=== PATIENT | male | born 1975 | race Hispanic/Latino ===

== ENCOUNTER 2021-03-14 22:14 | Observation (INO) | payer SELFPAY ==
[2021-03-14 22:56] LABS: #Lymphocytes 1.1 thou/uL (1.20-3.40); #Monocytes 0.3 thou/uL (0.11-0.59); #Neutrophils 6.9 thou/uL (1.40-6.50); %Basophils 0.2 % (0.0-1.0); %Eosinophils 0.1 % (0.0-10.0); %Lymphocytes 12.5 % (21.0-51.0); %Monocytes 4.1 % (0.0-10.0); %Neutrophils 83.1 % (42.0-75.0); Hemoglobin 16.6 g/dL (14.0-18.0); Mean Corpuscular HGB CONC 33.9 g/dL (32.0-36.0); Mean Corpuscular Hemoglobin 31.7 pg (27.0-31.0); Mean Corpuscular Volume 93.7 fL (78.0-98.0); Mean Platelet Volume 10.4 fL (7.4-10.4); Platelet Count 120 thou/uL (130-400); RBC Distribution Width 12.3 % (11.5-14.5); Red Blood Cell (RBC) Count 5.22 mill/uL (4.70-6.10); White Blood Cell (WBC) Count 8.4 thou/uL (4.8-10.8)
[2021-03-14 23:14] LABS: ALT (SGPT) 213 U/L (8-55); AST (SGOT) 261 U/L (5-34); Albumin 3.9 g/dL (3.5-5.0); Alkaline Phosphatase 102 U/L (40-110); Anion Gap 13 mmol/L (10-20); BUN (Urea Nitrogen) 11 mg/dL (8.9-20.6); Bilirubin, Total 0.5 mg/dL (0.2-1.2); Calc. Creatinine Clearance 0 mL/min (70-130); Calcium 8.8 mg/dL (7.8-10.44); Carbon Dioxide 24 mmol/L (22-29); Chloride 99 mmol/L (98-107); Globulin 2.7 g/dL (2.4-3.5); Glucose 112 mg/dL (70-105); Potassium 4.1 mmol/L (3.5-5.1); Protein, Total 6.6 g/dL (6.0-8.3); Sodium 132 mmol/L (136-145)
[2021-03-14] MEDS ORDERED: Acetaminophen 500 MG TAB ONE (23:44)
[2021-03-15] MEDS ORDERED: Dexamethasone 10 MG/ML VIAL ONE (00:30)
[2021-03-15] MEDS ORDERED: Albuterol 200 PUFF (6.7GM INHALER) ONE (00:41)
[2021-03-15 00:51] LABS: SARS-CoV-2 NAA Rapid Test DETECTED (NotDetected)
[2021-03-15] MEDS ORDERED: Ondansetron ODT 4 MG TAB SL PRN (03:15)
[2021-03-15] MEDS ORDERED: Ondansetron PF 4 MG/2 ML Vial IVP PRN (03:15)
[2021-03-15 03:56] VITALS: BMI 34.9
[2021-03-15] MEDS ORDERED: Acetaminophen 500 MG TAB PO PRN (09:15)
[2021-03-15] MEDS ORDERED: GUAIFENESIN SF SOLN 200 MG/10 ML UDCUP PO PRN (09:15)
[2021-03-15] MEDS ORDERED: Ibuprofen 200 MG TAB PO PRN (09:15)
[2021-03-15] MEDS ORDERED: Cepastat Lozenges 1 LOZ PO PRN (09:15)
[2021-03-15] MEDS ORDERED: Benzonatate 100 MG CAP PO PRN (09:15)
[2021-03-15] MEDS: Ascorbic Acid 500 mg Chewable Tablet PO SCH (10:34)
[2021-03-15] MEDS: Zinc Sulfate 220 MG CAP PO SCH (10:34)
[2021-03-15] MEDS: Cholecalciferol 1,000 UNITS (25 MCG) TAB PO SCH (10:34)
[2021-03-15] MEDS ORDERED: Iopamidol-370 76% 500 ML 1 ML ONE (10:45)
[2021-03-15 16:49] VITALS: TEMP 98.4
[2021-03-15] MEDS: Dexamethasone 4 mg/ml Vial SLOW IVP SCH (21:32)
[2021-03-16 07:30] LABS: #Lymphocytes 1.3 thou/uL (1.20-3.40); #Monocytes 0.9 thou/uL (0.11-0.59); #Neutrophils 15.4 thou/uL (1.40-6.50); %Basophils 0.2 % (0.0-1.0); %Eosinophils 0.1 % (0.0-10.0); %Lymphocytes 7.1 % (21.0-51.0); %Monocytes 5.2 % (0.0-10.0); %Neutrophils 87.4 % (42.0-75.0); Hemoglobin 16.5 g/dL (14.0-18.0); Mean Corpuscular HGB CONC 32.5 g/dL (32.0-36.0); Mean Corpuscular Hemoglobin 30.4 pg (27.0-31.0); Mean Corpuscular Volume 93.6 fL (78.0-98.0); Mean Platelet Volume 10.4 fL (7.4-10.4); Platelet Count 177 thou/uL (130-400); RBC Distribution Width 12.5 % (11.5-14.5); Red Blood Cell (RBC) Count 5.42 mill/uL (4.70-6.10); White Blood Cell (WBC) Count 17.6 thou/uL (4.8-10.8)
[2021-03-16 07:50] LABS: Anion Gap 14 mmol/L (10-20); BUN (Urea Nitrogen) 15 mg/dL (8.9-20.6); Calc. Creatinine Clearance 116 mL/min (70-130); Calcium 8.9 mg/dL (7.8-10.44); Carbon Dioxide 25 mmol/L (22-29); Chloride 104 mmol/L (98-107); Glucose 158 mg/dL (70-105); Potassium 4.5 mmol/L (3.5-5.1); Sodium 138 mmol/L (136-145)
[2021-03-16 08:08] VITALS: BP 117/71
[2021-03-16] MEDS: Dexamethasone 4 mg/ml Vial SLOW IVP SCH (08:30)
[2021-03-16] MEDS: Cholecalciferol 1,000 UNITS (25 MCG) TAB PO SCH (08:30)
[2021-03-16] MEDS: Ascorbic Acid 500 mg Chewable Tablet PO SCH (08:30)
[2021-03-16] MEDS: Zinc Sulfate 220 MG CAP PO SCH (08:30)
[2021-03-16] MEDS ORDERED: Enoxaparin Sodium 40 MG/0.4 ML SYRINGE SC SCH (09:00)
[2021-03-18] MEDS ORDERED: FLU VACC QS2021-22(6MOS UP)/PF 60 MCG/0.5 ML SYRINGE IM ONE (09:00)
== END 2021-03-16 13:30 | disposition home or self-care (01) ==
LOC: ERS 22:14 → T4-B 03-15 02:10
PROVIDERS: ADMIT Internal Medicine; ATTEND Internal Medicine
DX: U07.1 COVID-19 (principal); J12.82 Pneumonia due to coronavirus disease 2019
CPT/HCPCS: 0240U; 36415; 71045; 71275; 80048; 80053; 84484; 85025; 93005; 96372; 96374; 96376; G0378; J1100; J1650; Q9967